=== PATIENT | male | born 1985 | race Caucasian/White ===

== ENCOUNTER 2022-01-14 07:46 | Outpatient (CLI) | payer OTHER, SELFPAY ==
--- NOTE | 2022-01-19 14:07 | WPDHOMESLEEP ---
Sleep Study - Home Unattended Date of Study: 01/14/22 Ordering Provider: Prince Jensen MD Interpreting Provider: Cynthia Marquez, DO Home Sleep Study Type: Watch PAT Height: 1.7 m Weight: 107.048 kg Body Mass Index: 36.9 Neck Circumference (inches): 16.25 [place]: 14 Reason for Sleep Study Loud snoring and daytime somnolence Sleep History The patient is a 36 year old male with seasonal allergies and GERD that had a sleep study ordered by his primary care for evaluation sleep. The patient rarely awakens from sleep short of breath. He occasionally awakens at night with heartburn, belching or cough. He constantly snores loud enough that others complain. He occasionally has trouble sleeping when he has a cold. He denies waking up gasping for air throughout the night. He occasionally has breathing problems at night observed by himself or others. He occasionally sweats excessively at night. He occasionally has heart palpitations or irregular heartbeats during the night. He occasionally falls asleep during the day but rarely while driving. He frequently has trouble at school or work due to sleepiness. He denies sleep paralysis and cataplexy. He rarely experiences vivid dreamlike scenes upon awakening or falling asleep. He rarely has nightmares. He rarely has thoughts racing through his mind. He rarely feels sad or depressed. He rarely has anxiety. He frequently has muscular tension. He occasionally notices parts of his body jerk. He rarely kicks during the night. He denies having crawling and aching feelings in his legs as well as leg pain during the night. He denies grinding his teeth during sleep and awakening with morning jaw pain. He is really bothered by pain during the day and rarely awakened by pain during the night. He constantly wakes up feeling stiff in the morning. He frequently wakes up with sore or achy muscles. He frequently wakes up with pain in the neck, spine and other joints. He goes to bed at 11:00 a.m. on weekdays and midnight on the weekends. It takes him less than 30 minutes to fall asleep. He wakes up 1-3 times throughout the night to use the restroom and get a drink. He can fall back asleep within 10 minutes. He wakes up at 5:30 p.m. on weekdays and between 830 and 10:00 a.m. on the weekends. He typically gets 6 hours of sleep per night. He will stay in bed for 10-60 minutes after waking up in the morning. He currently lives with a partner. The patient currently works midnights and sometimes every other weekend. He does not consume any caffeinated beverages within 2 hours of bedtime. He does not engage in physical exercise before bedtime. He will watch television before falling asleep. He will rarely take naps in the afternoon or the evening and it is occasionally refreshing. He will drink 1-2 lattes per day. he denies tobacco, alcohol and recreational drug use. PENDING SALE TO [facility] Past Medical History Medical History GERD (gastroesophageal reflux disease) Seasonal allergies Family History Family History Mother Family history of diabetes mellitus in first degree relative Diabetes mellitus Social History Social History Smoking status: Never smoker Second hand tobacco smoke exposure: No Alcohol intake: never Medications Home Medications Medication Instructions Recorded Confirmed Type buprenorphine 5.7 mg-naloxone 1.4 1 tablet SUBLINGUAL BID #60 tablet 02/14/20 01/23/21 Rx mg sublingual tablet ascorbic acid (vitamin C) 1,000 mg 1 g PO DAILY 07/11/20 01/23/21 History tablet coenzyme Q10 100 mg capsule 100 mg PO DAILY 07/11/20 01/23/21 History garlic 1,000 mg capsule 1,000 mg PO DAILY 07/11/20 01/23/21 History magnesium citrate 125 mg capsule 125 mg PO DAILY 07/11/20 01/23/21 History omega-3 360 mg-dha-ep
[2022-01-19 14:21] VITALS: BMI 36.9
== END 2022-01-19 13:58 | disposition home or self-care (01) ==
LOC: ANHCSM 07:47
PROVIDERS: PCP Internal Medicine; Visit Provider Internal Medicine
DX: G47.33 Obstructive sleep apnea (adult) (pediatric) (principal)
CPT/HCPCS: 95800